=== PATIENT | male | born 1990 | race Caucasian/White ===

== ENCOUNTER 2018-03-19 20:20 | Emergency (ER) | payer OTHER ==
[2018-03-19 20:33] VITALS: RESP 18; TEMP 98.8
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
[2018-03-20 02:55] VITALS: BP 127/79; PULSE 89; O2SAT 99
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
== END 2018-03-19 22:55 | disposition home or self-care (01) ==
LOC: ED 20:20
DX: S83.92XA Sprain of unspecified site of left knee, initial encounter (principal); S93.402A Sprain of unspecified ligament of left ankle, initial encounter; V03.90XA Pedestrian on foot injured in collision with car, pick-up truck or van, unspecified whether traffic or nontraffic accident, initial encounter; Y92.410 Unspecified street and highway as the place of occurrence of the external cause
CPT/HCPCS: 73562; 73610; 96372; 99283; J1885